=== PATIENT | female | born 1995 ===

== ENCOUNTER 2017-09-18 16:24 | Emergency (ER) | payer SELFPAY ==
[2017-09-18 16:24] VITALS: BMI 23.0
[2017-09-18 17:37] VITALS: BP 109/65; PULSE 65; RESP 20; TEMP 98.5; O2SAT 99
[2017-09-18] MEDS ORDERED: Albuterol 0.083% Inhal Sol (2.5 mg/3 mL) UD INH ONE (18:28)
[2017-09-18] MEDS ORDERED: Albuterol-Ipratrop 3 mg / 0.5 (3 ml) UD ONE (18:39)
--- NOTE | 2017-09-18 19:03 | ED PDOC ---
HPI: CCC, URI, Sore Throat Time Seen by Provider: 09/18/17 17:55 Chief Complaint (Nursing): ENT Problem Chief Complaint (Provider): Ear pain, sore throat History Per: Patient History/Exam Limitations: no limitations Onset/Duration Of Symptoms: Days (x4) Current Symptoms Are (Timing): Still Present Location Of Pain: Ear(s), Throat Additional Complaint(s): Alivia is a 22 y/o female with a past medical history of asthma, who presents complaining of right-sided ear pain since Sunday associated with a mild sore throat. She denies any cough, nasal congestion, or fever. Patient notes she has a history of asthma, and feels like she is wheezing. On Sunday, patient notes her symptoms became associated with upper back pain. She denies any known injury or recent heavy lifting. Patient states she ran out of medications for her nebulizer, so she has not been doing any treatments, but she has been using her inhaler, last time on Sunday. She denies taking any medications for pain relief [employer]. LMP was July 31. PMD: None Past Medical History Reviewed: Historical Data, Nursing Documentation, Vital Signs Vital Signs: Last Vital Signs Temp 98.5 F 09/18/17 17:36 Pulse 65 09/18/17 17:36 Resp 20 09/18/17 17:36 BP 109/65 09/18/17 17:36 Pulse Ox 99 09/18/17 19:47 - Medical History PMH: Asthma - Family History Family History: States: Unknown Family Hx - Social History Current smoker - smoking cessation education provided: No Alcohol: None Drugs: Denies - Home Medications Home Medications: Ambulatory Orders Medication Instructions Recorded Ibuprofen [Motrin] 600 mg PO Q8 PRN #21 tab 06/14/17 Albuterol 0.083% [Albuterol 0.5 ml IH QID #25 neb 09/18/17 Sulfate 3 Ml] Amoxicillin 500 mg PO TID 10 Days #30 tablet 09/18/17 - Allergies Allergies/Adverse Reactions: Allergies Allergy/AdvReac Type Severity Reaction Status Date / Time No Known Allergies Allergy Verified 06/14/17 12:09 Review of Systems ROS Statement: Except As Marked, All Systems Reviewed And Found Negative Constitutional: Negative for: Fever ENT: Positive for: Ear Pain (Right), Throat Pain. Negative for: Nose Congestion Respiratory: Positive for: Wheezing. Negative for: Cough Musculoskeletal: Positive for: Back Pain Physical Exam - Reviewed Nursing Documentation Reviewed: Yes Vital Signs Reviewed: Yes - Physical Exam Appears: Positive for: Non-toxic, No Acute Distress Head Exam: Positive for: ATRAUMATIC, NORMAL INSPECTION, NORMOCEPHALIC Skin: Positive for: Normal Color, Warm, Dry Eye Exam: Positive for: Normal appearance, EOMI, PERRL ENT: Positive for: TM Is/Are (Right TM erythematous and bulging) Neck: Positive for: Normal, Supple Cardiovascular/Chest: Positive for: Regular Rate, Rhythm. Negative for: Murmur Respiratory: Positive for: Other (Tight air exchange bilaterally). Negative for : Accessory Muscle Use, Crackles, Rales, Rhonchi, Stridor, Wheezing, Respiratory Distress Back: Positive for: Normal Inspection, Other (Parathoracic tenderness bilaterally). Negative for: Vertebral Tenderness Extremity: Positive for: Normal ROM. Negative for: Pedal Edema, Deformity Neurologic/Psych: Positive for: Alert, Oriented (x3) - ECG O2 Sat by Pulse Oximetry: 99 (RA) Pulse Ox Interpretation: Normal - Radiology X-Ray: Interpreted by [place] X-Ray Interpretation: No Acute Disease Medical Decision Making Medical Decision Making: Time: 18:30 Initial Plan: --Albuterol 2.5 mg INH --Peak Flow pre/post treatment --Amoxil 500 mg PO --Tylenol 650 mg PO --Chest X-Ray --Pending reevaluation X-ray reviewed by ALLISON DOWLING. On reevaluation, patient resting comfortably in no acute distress. Lungs CTA bilaterally, without wheezes, rales, rhonchi, or retractions. Patient advised to take medication as prescribed, and to f/u with her PMD/Clinic , and return with any worsening or change in symptoms. She expresses understanding and agreement. Scribe Attestation: Documented by Vera Lai, acting as a scribe for Nory Sanchez PA-C Provider Scribe Attestation: All medical record entries made by the Scribe were at my direction and personally dictated by me. I have reviewed the chart and agree that the record accurately reflects my personal performance of the history, physical exam, medical decision making, and the department course for this patient. I have also personally directed, reviewed, and agree with the discharge instructions and disposition. Disposition - Clinical Impression Clinical Impression: Otitis media, Back pain - Patient ED Disposition Is Patient to be Admitted: No Counseled Patient/Family Regarding: Studies Performed, Diagnosis, Need For Followup, Rx Given - Disposition Referrals: [facility] [Outside] Disposition: Routine/Home Disposition Time: 19:44 Condition: STABLE Additional Instructions: Take meds as prescribed, and f/u as instructed. Prescriptions: Albuterol 0.083% [Albuterol Sulfate 3 Ml] 0.5 ml IH QID #25 neb Amoxicillin 500 mg PO TID 10 Days #30 tablet Instructions: Otitis Media (ED), Back Pain (ED) Forms: [employer] (Malian) Print Language: SLOVAK
--- NOTE | 2017-09-19 09:44 | RAD ---
HISTORY: cough, back pain COMPARISON: No prior. TECHNIQUE: Chest PA and lateral FINDINGS: LUNGS: No active pulmonary disease. PLEURA: No significant pleural effusion identified. No pneumothorax apparent. CARDIOVASCULAR: Normal. OSSEOUS STRUCTURES: No significant abnormalities. VISUALIZED UPPER ABDOMEN: Normal. OTHER FINDINGS: None. IMPRESSION: No active disease.
== END 2017-09-18 20:02 | disposition home or self-care (01) ==
LOC: H.ER 16:24
DX: J45.909 Unspecified asthma, uncomplicated (principal); M54.9 Dorsalgia, unspecified